=== PATIENT | female | born 1965 | race African-American/Black ===

== ENCOUNTER 2018-12-31 15:18 | Emergency (ER) | payer MEDICARE ==
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
[2018-12-31] MEDS ORDERED: HYDROcodone/Acetaminophen 10/325 mg Tablet ONE (19:03)
[2018-12-31] MEDS ORDERED: Acetaminophen 500 MG TAB ONE (19:03)
== END 2018-12-31 19:47 | disposition home or self-care (01) ==
LOC: ERS 15:18
DX: M54.5 Low back pain (principal); I10 Essential (primary) hypertension; F32.9 Major depressive disorder, single episode, unspecified; F17.210 Nicotine dependence, cigarettes, uncomplicated; Z79.899 Other long term (current) drug therapy
CPT/HCPCS: 72100

== ENCOUNTER 2021-11-24 16:26 | Observation (INO) | payer MEDICARE, SELFPAY ==
[2021-11-24 17:20] LABS: #Basophils 0.1 thou/uL (0.0-0.2); #Eosinphils 0.1 thou/uL (0.0-0.7); #Lymphocytes 2.3 thou/uL (1.20-3.40); #Monocytes 0.5 thou/uL (0.11-0.59); %Basophils 1.3 % (0.0-1.0); %Eosinophils 0.9 % (0.0-10.0); %Lymphocytes 39.1 % (21.0-51.0); %Monocytes 7.9 % (0.0-10.0); %Neutrophils 50.8 % (42.0-75.0); Hemoglobin 14.8 g/dL (12.0-16.0); Mean Corpuscular HGB CONC 32.2 g/dL (32.0-36.0); Mean Corpuscular Hemoglobin 31.2 pg (27.0-31.0); Mean Corpuscular Volume 96.9 fL (78.0-98.0); Mean Platelet Volume 7.2 fL (7.4-10.4); Platelet Count 329 thou/uL (130-400); RBC Distribution Width 12.8 % (11.5-14.5); Red Blood Cell (RBC) Count 4.74 mill/uL (4.20-5.40); White Blood Cell (WBC) Count 5.9 thou/uL (4.8-10.8)
[2021-11-24 17:22] LABS: Prothrombin Time 47.4 sec (12.0-14.7)
[2021-11-24 17:23] LABS: PTT 83.9 sec (22.9-36.1)
[2021-11-24 17:30] LABS: ALT (SGPT) 23 U/L (8-55); AST (SGOT) 23 U/L (5-34); Alkaline Phosphatase 114 U/L (40-110); Anion Gap 14 mmol/L (10-20); BUN (Urea Nitrogen) 13 mg/dL (9.8-20.1); Bilirubin, Total 0.4 mg/dL (0.2-1.2); Calc. Creatinine Clearance 0 mL/min (70-130); Carbon Dioxide 25 mmol/L (22-29); Chloride 107 mmol/L (98-107); Estimated GFR 56; Globulin 3.3 g/dL (2.4-3.5); Glucose 104 mg/dL (70-105); Protein, Total 7.3 g/dL (6.0-8.3); Sodium 142 mmol/L (136-145)
[2021-11-24] MEDS ORDERED: Phytonadione 10 MG/ML AMP ONE (18:07)
[2021-11-24] MEDS ORDERED: Tranexamic Acid 1,000 MG/10 ML VIAL ONE (18:28)
[2021-11-24] MEDS ORDERED: Morphine 4 MG/ML VIAL ONE (19:51)
[2021-11-24] MEDS ORDERED: Ondansetron PF 4 MG/2 ML Vial ONE (19:52)
[2021-11-24] MEDS ORDERED: Acetaminophen 650 MG Suppository PR PRN (22:24)
[2021-11-24] MEDS ORDERED: Ondansetron PF 4 MG/2 ML Vial IVP PRN (22:24)
[2021-11-24] MEDS ORDERED: Acetaminophen 325 MG TAB PO PRN (22:24)
[2021-11-24] MEDS ORDERED: Ondansetron ODT 4 MG TAB PO PRN (22:24)
[2021-11-24 22:31] VITALS: BMI 39.1
[2021-11-25] MEDS ORDERED: hydrALAZINE 20 MG/ML VIAL SLOW IVP PRN (00:47)
[2021-11-25 00:52] LABS: Hemoglobin 14.6 g/dL (12.0-16.0)
[2021-11-25 05:59] LABS: #Eosinphils 0.1 thou/uL (0.0-0.7); #Lymphocytes 2.3 thou/uL (1.20-3.40); #Monocytes 0.5 thou/uL (0.11-0.59); #Neutrophils 4.3 thou/uL (1.40-6.50); %Basophils 0.4 % (0.0-1.0); %Lymphocytes 31.5 % (21.0-51.0); %Monocytes 7.6 % (0.0-10.0); %Neutrophils 59.6 % (42.0-75.0); Hemoglobin 14.8 g/dL (12.0-16.0); Mean Corpuscular HGB CONC 31.7 g/dL (32.0-36.0); Mean Corpuscular Volume 97.6 fL (78.0-98.0); Mean Platelet Volume 7.6 fL (7.4-10.4); Platelet Count 332 thou/uL (130-400); RBC Distribution Width 12.7 % (11.5-14.5); Red Blood Cell (RBC) Count 4.77 mill/uL (4.20-5.40); White Blood Cell (WBC) Count 7.2 thou/uL (4.8-10.8)
[2021-11-25 06:13] LABS: INR-International Normal Ratio 2.2; Prothrombin Time 25.3 sec (12.0-14.7)
[2021-11-25 06:27] LABS: Anion Gap 13 mmol/L (10-20); BUN (Urea Nitrogen) 12 mg/dL (9.8-20.1); Calc. Creatinine Clearance 145 mL/min (70-130); Calcium 9.3 mg/dL (7.8-10.44); Carbon Dioxide 24 mmol/L (22-29); Chloride 105 mmol/L (98-107); Estimated GFR 85; Glucose 97 mg/dL (70-105); Potassium 4.3 mmol/L (3.5-5.1); Sodium 138 mmol/L (136-145)
[2021-11-25] MEDS ORDERED: Hydrochlorothiazide 25 MG TAB PO SCH (09:00)
[2021-11-25] MEDS ORDERED: Losartan 25 MG TAB PO SCH (09:00)
[2021-11-25] MEDS ORDERED: Amlodipine 10 MG TAB PO SCH (09:00)
[2021-11-25] MEDS ORDERED: FLUoxetine HCl 20 MG CAP PO SCH (09:00)
[2021-11-25] MEDS ORDERED: Carvedilol 25 MG TAB PO SCH (09:00)
[2021-11-25] MEDS ORDERED: traMADol HCl 50 MG TAB PO PRN (11:00)
[2021-11-25] MEDS ORDERED: HYDROcodone/Acetaminophen 10/325 mg Tablet PO PRN (11:00)
[2021-11-25 17:20] VITALS: BP 144/81; TEMP 97.3
== END 2021-11-25 17:00 | disposition home or self-care (01) ==
LOC: ERS 16:26 → T4-A 21:29
PROVIDERS: ADMIT Internal Medicine; ATTEND Internal Medicine
DX: K06.8 Other specified disorders of gingiva and edentulous alveolar ridge (principal); R79.1 Abnormal coagulation profile; I16.0 Hypertensive urgency; I10 Essential (primary) hypertension; E78.5 Hyperlipidemia, unspecified; F17.210 Nicotine dependence, cigarettes, uncomplicated; J30.2 Other seasonal allergic rhinitis; Z86.711 Personal history of pulmonary embolism; Z79.899 Other long term (current) drug therapy; Z88.1 Allergy status to other antibiotic agents; Z88.2 Allergy status to sulfonamides; Z88.5 Allergy status to narcotic agent; Z20.822 Contact with and (suspected) exposure to COVID-19
CPT/HCPCS: 36415; 36430; 80048; 80053; 85025; 85610; 85730; 86850; 86900; 86901; 96374; 96375; 96376; G0378; J0360; J2270; J2405; J3430; P9059; Q0162; U0003; U0005

== ENCOUNTER 2024-12-02 17:12 | Inpatient (IN) | payer OTHER ==
[~2024-12-02 17:12] MED LIST: Iopamidol-370 76% 500 ML MDV (1 ML CHARGE) ONE
[2024-12-02] MEDS ORDERED: Pantoprazole 40 MG VIAL ONE (18:56)
[2024-12-02] MEDS ORDERED: Droperidol 5 MG/2 ML VIAL ONE (19:06)
[2024-12-02 20:02] LABS: #Basophils 0.04 10x3/uL (0.0-0.2); #Eosinophils 0.05 10x3/uL (0.0-0.7); #Monocytes 0.66 10x3/uL (0.11-0.59); #Neutrophils 4.41 10x3/uL (1.40-6.50); %Basophils 0.5 % (0.0-1.0); %Eosinophils 0.6 % (0.0-10.0); %Lymphocytes 38.5 % (21.0-51.0); %Monocytes 7.8 % (0.0-10.0); %Neutrophils 52.4 % (42.0-75.0); Hematocrit 45.8 % (36.0-47.0); Hemoglobin 14.6 g/dL (12.0-16.0); Mean Corpuscular Hemoglobin 30.0 pg (27.0-31.0); Mean Corpuscular Volume 94.0 fL (78.0-98.0); Platelet Count 317 10x3/uL (130-400); Red Blood Cell (RBC) Count 4.87 mill/uL (4.20-5.40); White Blood Cell (WBC) Count 8.42 10x3/uL (4.8-10.8)
[2024-12-02 20:20] LABS: ALT (SGPT) 29 U/L (Less than 34); AST (SGOT) 22 U/L (11-34); Albumin 3.8 g/dL (3.1-4.5); Alkaline Phosphatase 110 U/L (40-110); Anion Gap 13 mmol/L (10-20); BUN (Urea Nitrogen) 8 mg/dL (9.8-20.1); Bilirubin, Total 0.3 mg/dL (0.3-1.2); Calc. Creatinine Clearance 0 mL/min (70-130); Calcium 9.2 mg/dL (7.8-10.44); Carbon Dioxide 26 mmol/L (22-29); Chloride 108 mmol/L (98-107); Globulin 3.5 g/dL (2.4-3.5); Glucose 85 mg/dL (70-105); INR-International Normal Ratio 1.2; PTT 27.9 sec (22.9-36.1); Potassium 3.9 mmol/L (3.5-5.1); Prothrombin Time 15.1 sec (12.0-14.7); Sodium 143 mmol/L (136-145)
[2024-12-02 22:10] LABS: CAUTI Indications for Culture Dysuria,urgency,freq; Glucose, Urine (Dipstick) Normal (Negative); Leukocyte Negative Leu/uL (Negative); Protein, Urine (Dipstick) Negative (Neg-Trace); RBC/HPF 0-3 HPF (0-3); Specific Gravity, Urine 1.011 (1.002-1.036); WBC/HPF 0-3 HPF (0-3)
[2024-12-02 22:11] LABS: Bacteria/HPF 1+ HPF (None Seen)
[2024-12-02 22:12] LABS: Urine Culture Reflex No No
[2024-12-03] MEDS ORDERED: Senokot S 8.6-50 MG TAB PO PRN (02:42)
[2024-12-03] MEDS ORDERED: Melatonin 3 MG TAB PO PRN (02:42)
[2024-12-03 05:29] LABS: #Basophils Less than 0.03 10x3/uL (0.0-0.2); #Eosinophils 0.06 10x3/uL (0.0-0.7); #Monocytes 0.62 10x3/uL (0.11-0.59); #Neutrophils 3.33 10x3/uL (1.40-6.50); %Basophils 0.1 % (0.0-1.0); %Eosinophils 0.8 % (0.0-10.0); %Lymphocytes 43.0 % (21.0-51.0); %Monocytes 8.7 % (0.0-10.0); %Neutrophils 47.1 % (42.0-75.0); Hematocrit 44.1 % (36.0-47.0); Hemoglobin 14.5 g/dL (12.0-16.0); Mean Corpuscular Hemoglobin 30.5 pg (27.0-31.0); Mean Corpuscular Volume 92.6 fL (78.0-98.0); Platelet Count 311 10x3/uL (130-400); Red Blood Cell (RBC) Count 4.76 mill/uL (4.20-5.40); White Blood Cell (WBC) Count 7.09 10x3/uL (4.8-10.8)
[2024-12-03 05:44] LABS: Anion Gap 14 mmol/L (10-20); BUN (Urea Nitrogen) 6 mg/dL (9.8-20.1); Calc. Creatinine Clearance 0 mL/min (70-130); Calcium 8.8 mg/dL (7.8-10.44); Carbon Dioxide 25 mmol/L (22-29); Chloride 108 mmol/L (98-107); Glucose 103 mg/dL (70-105); Potassium 3.6 mmol/L (3.5-5.1); Sodium 143 mmol/L (136-145)
[2024-12-03 07:15] VITALS: BMI 19.3
[2024-12-03] MEDS ORDERED: Non-Formulary Item 1 EACH (Lidocaine 5% Patch [Lidoderm 5% Patch] 1 PATCH Patch) TOP SCH (09:00)
[2024-12-03] MEDS: Losartan 25 MG TAB PO SCH (09:16)
[2024-12-03] MEDS: Carvedilol 25 MG TAB PO SCH (09:16)
[2024-12-03 10:13] LABS: Hematocrit 44.3 % (36.0-47.0); Hemoglobin 14.3 g/dL (12.0-16.0)
[2024-12-03 10:28] LABS: Anion Gap 15 mmol/L (10-20); BUN (Urea Nitrogen) 6 mg/dL (9.8-20.1); Calc. Creatinine Clearance 70 mL/min (70-130); Calcium 8.9 mg/dL (7.8-10.44); Carbon Dioxide 24 mmol/L (22-29); Chloride 107 mmol/L (98-107); Glucose 108 mg/dL (70-105); Potassium 3.6 mmol/L (3.5-5.1); Sodium 142 mmol/L (136-145)
[2024-12-03] MEDS: GoLYTELY 4,000 ml Bottle PO SCH (16:36)
[2024-12-03 17:16] LABS: Hematocrit 42.3 % (36.0-47.0); Hemoglobin 13.8 g/dL (12.0-16.0)
[2024-12-03] MEDS: Transdermal Patch Removal TOP SCH (20:00)
[2024-12-03 22:58] LABS: Hematocrit 42.8 % (36.0-47.0); Hemoglobin 14.1 g/dL (12.0-16.0)
[2024-12-04 06:28] LABS: #Basophils Less than 0.03 10x3/uL (0.0-0.2); #Eosinophils 0.08 10x3/uL (0.0-0.7); #Monocytes 0.51 10x3/uL (0.11-0.59); #Neutrophils 2.32 10x3/uL (1.40-6.50); %Basophils 0.3 % (0.0-1.0); %Eosinophils 1.3 % (0.0-10.0); %Lymphocytes 53.7 % (21.0-51.0); %Monocytes 8.0 % (0.0-10.0); %Neutrophils 36.4 % (42.0-75.0); Hematocrit 43.1 % (36.0-47.0); Hemoglobin 14.0 g/dL (12.0-16.0); Mean Corpuscular Hemoglobin 30.0 pg (27.0-31.0); Mean Corpuscular Volume 92.5 fL (78.0-98.0); Platelet Count 302 10x3/uL (130-400); Red Blood Cell (RBC) Count 4.66 mill/uL (4.20-5.40); White Blood Cell (WBC) Count 6.37 10x3/uL (4.8-10.8)
[2024-12-04] MEDS ORDERED: PROPOFOL 20 ML ONE ×3 (09:17→10:14)
[2024-12-04] MEDS ORDERED: hydrALAZINE 20 MG/ML VIAL ONE (10:44)
[2024-12-04] MEDS: Ondansetron PF 4 MG/2 ML Vial IVP PRN (11:58)
[2024-12-04] MEDS: Acetaminophen 325 MG TAB PO PRN (21:13)
[2024-12-05 10:12] LABS: #Basophils Less than 0.03 10x3/uL (0.0-0.2); #Eosinophils 0.05 10x3/uL (0.0-0.7); #Monocytes 0.54 10x3/uL (0.11-0.59); #Neutrophils 3.17 10x3/uL (1.40-6.50); %Basophils 0.3 % (0.0-1.0); %Eosinophils 0.8 % (0.0-10.0); %Lymphocytes 36.2 % (21.0-51.0); %Monocytes 9.1 % (0.0-10.0); %Neutrophils 53.4 % (42.0-75.0); Hematocrit 43.9 % (36.0-47.0); Hemoglobin 13.9 g/dL (12.0-16.0); Mean Corpuscular Hemoglobin 29.6 pg (27.0-31.0); Mean Corpuscular Volume 93.6 fL (78.0-98.0); Platelet Count 308 10x3/uL (130-400); Red Blood Cell (RBC) Count 4.69 mill/uL (4.20-5.40); White Blood Cell (WBC) Count 5.94 10x3/uL (4.8-10.8)
[2024-12-05 10:22] LABS: INR-International Normal Ratio 1.2; Prothrombin Time 14.8 sec (12.0-14.7)
[2024-12-05 13:40] VITALS: BP 141/77; TEMP 97.9
== END 2024-12-05 13:47 | disposition home or self-care (01) | DRG 378 ==
LOC: ERS 17:12 → ERHOLD 12-03 01:05 → OBSVTOIN 12-03 01:05 → OBS 12-03 01:12
PROVIDERS: ADMIT Internal Medicine; ATTEND Hospitalist
PROC: 0DBL8ZX Excision of Transverse Colon, Via Natural or Artificial Opening Endoscopic, Diagnostic (ICD-10-PCS; principal; 2024-12-04)
DX: K57.31 Diverticulosis of large intestine without perforation or abscess with bleeding (principal); I16.1 Hypertensive emergency; I47.10 Supraventricular tachycardia, unspecified; K92.1 Melena; I10 Essential (primary) hypertension; I87.8 Other specified disorders of veins; F43.10 Post-traumatic stress disorder, unspecified; F17.210 Nicotine dependence, cigarettes, uncomplicated; Z98.890 Other specified postprocedural states; Z90.710 Acquired absence of both cervix and uterus; Z90.89 Acquired absence of other organs; Z98.51 Tubal ligation status; Z88.1 Allergy status to other antibiotic agents; Z88.2 Allergy status to sulfonamides; Z88.8 Allergy status to other drugs, medicaments and biological substances; Z79.01 Long term (current) use of anticoagulants; Z79.899 Other long term (current) drug therapy; Z86.711 Personal history of pulmonary embolism
CPT/HCPCS: 36415; 36416; 74177; 80048; 80053; 81001; 83605; 85025; 85610; 85730; 86850; 86900; 86901; 88305; 93005; 96374; 96375; G0378; J0360; J1790; J2405; J2470; J2704; Q0162; Q9967